=== PATIENT | female | born 1950 | race Caucasian/White ===

== ENCOUNTER 2017-07-06 10:56 | Observation (INO) | payer MEDICAID ==
[2017-07-06] MEDS ORDERED: ONDANSETRON 4 MG TAB.RAPDIS PO ONE (11:59)
[2017-07-06] MEDS ORDERED: NORMAL SALINE 1000 ML 1,000 ML IV ONE ×2 (12:00→18:22)
[2017-07-06] MEDS ORDERED: MECLIZINE HCL 25 MG TABLET PO ONE ×2 (12:00→18:29)
--- NOTE | 2017-07-06 12:08 | ER Document Report ---
ED Medical Screen (RME) - General Chief Complaint: Vertigo Stated Complaint: HEADACHE Time Seen by Provider: 07/06/17 11:56 Notes: 66-year-old female patient with 2 separate problems. Woke up yesterday morning with vertigo symptoms with her head spinning nausea vomiting. If she lays quite still it is okay if she moves it all gets very bad. Exam shows nystagmus made much worse with head movement. Second problem is left-sided abdominal pain she reports off and on for years, severe last 2 days. So she is quite tender in the left lower quadrant of her abdomen. I have greeted and performed a rapid initial assessment of this patient. A comprehensive ED assessment and evaluation of the patient, analysis of test results and completion of the medical decision making process will be conducted by additional ED providers. TRAVEL OUTSIDE OF THE [place] IN LAST 30 DAYS: No - Related Data Allergies/Adverse Reactions: No Known Allergies Allergy (Verified 07/06/17 10:58) Past Medical History - Social History Chew tobacco use (# tins/day): No Frequency of alcohol use: None Drug Abuse: None - Past Medical History Cardiac Medical History: Denies: Hx Congestive Heart Failure, Hx Heart Attack, Hx Hypertension Pulmonary Medical History: Denies: Hx Asthma, Hx Bronchitis, Hx COPD, Hx Pneumonia, Hx Tuberculosis Neurological Medical History: Reports: Hx Seizures Endocrine Medical History: Reports: Hx Diabetes Mellitus Type 2 - "pre diabetic " Renal/ Medical History: Denies: Hx End Stage Renal Disease, Hx Kidney Stones , Hx Peritoneal Dialysis GI Medical History: Denies: Hx Cirrhosis, Hx Gastroesophageal Reflux Disease, Hx Ulcer Musculoskeltal Medical History: Denies Hx Arthritis, Denies Hx Multiple Sclerosis Psychiatric Medical History: Reports: Hx Depression Denies: Hx Bipolar Disorder, Hx Schizophrenia Past Surgical History: Reports: Hx Cholecystectomy, Hx Hysterectomy, Hx Orthopedic Surgery - Lumbar laminectomy. Denies: Hx Pacemaker - Immunizations Hx Diphtheria, Pertussis, Tetanus Vaccination: Yes - 07/05/08 Physical Exam - Vital signs Vitals: Temp Pulse Resp BP Pulse Ox 98.2 F 85 19 146/71 H 95 07/06/17 11:02 07/06/17 11:02 07/06/17 11:02 07/06/17 11:02 07/06/17 11:02 Course - Vital Signs Vital signs: Temp Pulse Resp BP Pulse Ox 98.2 F 85 19 146/71 H 95 07/06/17 11:02 07/06/17 11:02 07/06/17 11:02 07/06/17 11:02 07/06/17 11:02
[2017-07-06 12:44] LABS: ABSOLUTE BASOPHILS # (AUTO) 0.1 10^3/uL (0.0-0.2); ABSOLUTE EOSINOPHILS # (AUTO) 0.1 10^3/uL (0.0-0.6); ABSOLUTE LYMPHOCYTES (AUTO) 1.7 10^3/uL (0.5-4.7); ABSOLUTE MONOCYTES (AUTO) 0.7 10^3/uL (0.1-1.4); ABSOLUTE NEUT (AUTO) 9.6 10^3/uL (1.7-8.2); BASOPHILS % (AUTO) 0.5 % (0-2); EOSINOPHILS % (AUTO) 0.5 % (0-6); HEMATOCRIT 44.6 % (36.0-47.0); HEMOGLOBIN 14.3 g/dL (12.0-15.5); LYMPHOCYTES % (AUTO) 14.2 % (13-45); MEAN CORPUSCULAR HEMOGLOBIN 24.4 pg (27.0-33.4); MEAN CORPUSCULAR HGB CONC 32.1 g/dL (32.0-36.0); MEAN CORPUSCULAR VOLUME 76 fl (80-97); MONOCYTES % (AUTO) 5.6 % (3-13); PLATELET COUNT 314 10^3/uL (150-450); RED BLOOD COUNT 5.89 10^6/uL (3.72-5.28); RED CELL DISTRIBUTION WIDTH 15.3 % (11.5-14.0); SEGMENTED NEUTROPHILS % (AUTO) 79.2 % (42-78); TOTAL CELLS COUNTED % (AUTO) 100 %; WHITE BLOOD COUNT 12.1 10^3/uL (4.0-10.5)
[2017-07-06 13:01] LABS: APPEARANCE,URINE CLOUDY; BILIRUBIN,URINE NEGATIVE (NEGATIVE); COLOR,URINE AMBER; GLUCOSE, URINE 50 mg/dL (NEGATIVE); KETONES,URINE NEGATIVE (NEGATIVE); LEUKOCYTE ESTERASE,URINE SMALL (NEGATIVE); NITRITE,URINE POSITIVE (NEGATIVE); PROTEIN,URINE 30 mg/dL (NEGATIVE); URINE SPECIFIC GRAVITY 1.025
[2017-07-06 13:02] LABS: ALANINE AMINOTRANSFERASE 33 U/L (9-52); ALBUMIN 4.4 g/dL (3.5-5.0); ALKALINE PHOSPHATASE 73 U/L (38-126); ANION GAP 14 (5-19); ASPARTATE AMINO TRANSFERASE 23 U/L (14-36); BILIRUBIN,DIRECT 0.2 mg/dL (0.0-0.4); BILIRUBIN,TOTAL 0.4 mg/dL (0.2-1.3); BLOOD UREA NITROGEN 18 mg/dL (7-20); CARBON DIOXIDE 25 mmol/L (22-30); CHLORIDE 104 mmol/L (98-107); GLUCOSE 213 mg/dL (75-110); POTASSIUM 3.8 mmol/L (3.6-5.0); TOTAL PROTEIN 7.4 g/dL (6.3-8.2)
--- NOTE | 2017-07-06 13:14 | ER Document Report ---
ED General - General Chief Complaint: Vertigo Stated Complaint: HEADACHE Time Seen by Provider: 07/06/17 11:56 Notes: Patient is complaining of dizziness since awakening yesterday morning. During the day yesterday, she experienced 3 episodes where she saw lights flashing in both of her eyes. She also vomited about 5 times yesterday although she has not vomited any today. She says that every time she lifts her head, she feels spinning and gets sweaty and nauseated and lightheaded and dizzy. She is nauseated at this time. Had some diarrhea yesterday. Denies any recent fever. Denies any headache at all. Patient has never had a stroke. Patient also has pain in her left lower abdomen. She says that that pain has been present off and on over the past year or 2, but has significantly worsened in the last couple of days. Patient denies any constipation, but did have some diarrhea last evening. Denies any shortness of breath or difficulty breathing or cough or congestion. Denies any UTI symptoms, blood in urine, etc. TRAVEL OUTSIDE OF THE [place] IN LAST 30 DAYS: No - Related Data Allergies/Adverse Reactions: No Known Allergies Allergy (Verified 07/06/17 10:58) Past Medical History - Social History Smoking Status: Never Smoker Chew tobacco use (# tins/day): No Frequency of alcohol use: None Drug Abuse: None Family History: Reviewed & Not Pertinent Patient has suicidal ideation: No Patient has homicidal ideation: No Neurological Medical History: Reports: Hx Seizures Endocrine Medical History: Reports: Hx Diabetes Mellitus Type 2 - "pre diabetic " Psychiatric Medical History: Reports: Hx Depression Past Surgical History: Reports: Hx Cholecystectomy, Hx Hysterectomy, Hx Orthopedic Surgery - Lumbar laminectomy - Immunizations Hx Diphtheria, Pertussis, Tetanus Vaccination: Yes - 07/05/08 Review of Systems - Review of Systems Notes: REVIEW OF SYSTEMS: CONSTITUTIONAL : Denies fever. EENT: Denies eye, ear, nose or mouth or throat pain or other symptoms. Visual changes reported in HPI. CARDIOVASCULAR: Denies chest pain. RESPIRATORY: Denies cough, chest congestion, or shortness of breath. GASTROINTESTINAL: See HPI. GENITOURINARY: Denies difficulty or painful urinating, urinary frequency, blood in urine. MUSCULOSKELETAL: Denies back or neck pain. Denies joint pain or swelling. SKIN: Denies rash or skin lesions. NEUROLOGICAL: Denies LOC or altered mental status. Denies headache. Denies sensory loss or motor deficits. ALL OTHER SYSTEMS REVIEWED AND NEGATIVE. Physical Exam - Vital signs Vitals: Temp Pulse Resp BP Pulse Ox 98.2 F 85 19 146/71 H 97 07/06/17 10:58 07/06/17 10:58 07/06/17 10:58 07/06/17 10:58 07/06/17 10:58 Interpretation: Normal - Notes Notes: PHYSICAL EXAMINATION: GENERAL: Well-appearing, in no acute distress. HEAD: Atraumatic, normocephalic. EYES: Pupils equal round and reactive to light, extraocular movements intact. Physician examiner in triage reported the patient had nystagmus, but I do not elicit any nystagmus in my examination. ENT: oropharynx clear without exudates. Moist mucous membranes. NECK: Normal range of motion, supple. No carotid bruits heard. LUNGS: Breath sounds clear and equal bilaterally. HEART: Regular rate and rhythm without murmurs. ABDOMEN: Soft, mildly tender in the left lower quadrant but no guarding and no rebound. No masses felt. No bruits heard. BACK: No tenderness throughout entire back. EXTREMITIES: Normal range of motion without pain. NEUROLOGICAL: Normal speech, normal gait. Normal sensory, motor, and reflex exams. Awake, alert, and oriented x3. Cranial nerves normal. PSYCH: Normal mood, normal affect. SKIN: Warm, dry, no rashes. Course - Re-evaluation Re-evalutation: 07/06/17 18:10 I reevaluated patient. Her urine shows that she has a urinary tract infection and she has been given a dose of Rocephin IV. She is also been given IV fluids. She is continuing to have some nausea, and has now had a very large loose stool, although she questions if it is a viral illness or related to the oral contrast that she drank for the CT scan. She continues to be very dizzy and cannot stand and walk because of the dizziness. I still do not see nystagmus as I check her eye movements. Her CT scan of her head is normal. CT scan of the abdomen reveals a 3 cm ovarian cyst and nothing else. Patient is now having recurrent episodes of diarrhea or liquid stools secondary to the CT scan oral contrast. Spoke to the hospitalist on-call who will admit the patient for further evaluation and care for her UTI and nausea, vomiting, and diarrhea and apparent vertigo. - Vital Signs Vital signs: Temp Pulse Resp BP Pulse Ox 98.8 F 70 14 141/61 H 96 07/06/17 17:00 07/06/17 17:00 07/06/17 16:00 07/06/17 17:00 07/06/17 17:00 - Laboratory Result Diagrams: 07/06/17 12:25 07/06/17 12:25 Laboratory results interpreted by me: 07/06/17 07/06/17 07/06/17 12:05 12:25 12:25 WBC 12.1 H RBC 5.89 H MCV 76 L MCH 24.4 L RDW 15.3 H Seg Neutrophils % 79.2 H Absolute Neutrophils 9.6 H Glucose 213 H Urine Protein 30 H Urine Glucose (UA) 50 H Urine Nitrite POSITIVE H Urine Urobilinogen 2.0 H Ur Leukocyte Esterase SMALL H Discharge - Discharge Clinical Impression: UTI (urinary tract infection), Vomiting and diarrhea, Dizziness, Vertigo Condition: Stable Disposition: ADMITTED OBSERVATION Admitting Provider: Hospitalist Unit Admitted: Medical Floor Referrals: STELLA DIAZ MD [Primary Care Provider] - Follow up as needed
[2017-07-06] MEDS ORDERED: CEFTRIAXONE 1 GM/D5W RTU 1 GM/50 ML RTUPB IV ONE (15:37)
--- NOTE | 2017-07-06 16:05 | RADIOLOGY REPORT (SQ) ---
EXAM DESCRIPTION: CT HEAD WITHOUT COMPLETED DATE/TIME: 07/06/2017 3:57 pm REASON FOR STUDY: Extreme dizziness, vomiting, vision changes COMPARISON: None. TECHNIQUE: Axial images acquired through the brain without intravenous contrast. Images reviewed wi th bone, brain and subdural windows. Images stored on PACS. All CT scanners at this facility use dose modulation, iterative reconstruction, and/or weight based d osing when appropriate to reduce radiation dose to as low as reasonably achievable (ALARA). [facility]: Dose Right [facility]: CareDose [facility]: Dose Right [facility]: Teradose 4D [facility]: 2CODE Online RADIATION DOSE: mGy. LIMITATIONS: None. FINDINGS: VENTRICLES: Normal size and contour. CEREBRUM: No masses. No hemorrhage. No midline shift. No evidence for acute infarction. Normal gra y/white matter differentiation. No areas of low density in the white matter. CEREBELLUM: No masses. No hemorrhage. No alteration of density. No evidence for acute infarction. EXTRAAXIAL SPACES: No fluid collections. No masses. ORBITS AND GLOBE: No intra- or extraconal masses. Normal contour of globe without masses. CALVARIUM: No fracture. PARANASAL SINUSES: No fluid or mucosal thickening. SOFT TISSUES: No mass or hematoma. OTHER: No other significant finding. IMPRESSION: NORMAL BRAIN CT WITHOUT CONTRAST. EVIDENCE OF ACUTE STROKE: NO. COMMENT: Quality ID # [id number]: Final reports with documentation of one or more dose reduction techniques (e.g., Automated exposure control, adjustment of the mA and/or kV according to patient size, use of iterative reconstruction technique) TECHNICAL DOCUMENTATION: JOB ID: [id number] [employer]- All Rights Reserved
--- NOTE | 2017-07-06 16:21 | RADIOLOGY REPORT (SQ) ---
EXAM DESCRIPTION: CT ABD/PELVIS WITH IV ORAL COMPLETED DATE/TIME: 07/06/2017 4:05 pm REASON FOR STUDY: LLQ abdominal pain off and on, worse past 2 days COMPARISON: 04/21/2013. TECHNIQUE: CT scan of the abdomen and pelvis performed with intravenous and oral contrast using rodri adriana scanning technique with dynamic intravenous contrast injection. Images reviewed with lung, soft t issue, and bone windows. Reconstructed coronal and sagittal MPR images reviewed. Delayed images for e valuation of the urinary system also acquired. All images stored on PACS. All CT scanners at this facility use dose modulation, iterative reconstruction, and/or weight based d osing when appropriate to reduce radiation dose to as low as reasonably achievable (ALARA). [facility]: Dose Right [facility]: CareDose [facility]: Dose Right [facility]: Teradose 4D [facility]: [employer] CONTRAST TYPE AND DOSE: contrast/concentration: Isovue 370.00 mg/ml; Total Contrast Delivered: 100.0 ml; Total Saline Delivered: 50.0 ml RENAL FUNCTION: BUN 18 creatinine 0.8. RADIATION DOSE: CT Rad equipment meets quality standard of care and radiation dose reduction techniq ues were employed. CTDIvol: 9.6 - 14.4 mGy. DLP: 1322 mGy-cm.. LIMITATIONS: None. FINDINGS: LOWER CHEST: No significant findings. No nodules or infiltrates. LIVER: Normal size. Diffuse fatty infiltration. A few small subcentimeter cysts unchanged. No trudy d or enhancing masses. No dilated ducts. SPLEEN: Normal size. No focal lesions. PANCREAS: No masses. No significant calcifications. No adjacent inflammation or peripancreatic fluid collections. Pancreatic duct not dilated. GALLBLADDER: Surgically absent. ADRENAL GLANDS: Stable 2.4 cm left adrenal mass. RIGHT KIDNEY AND URETER: No solid masses. No significant calcification. No hydronephrosis or hydroure ter. LEFT KIDNEY AND URETER: No solid masses. No significant calcification. No hydronephrosis or hydrouret er. AORTA AND VESSELS: No aneurysm. No dissection. Renal arteries, SMA, celiac without stenosis. RETROPERITONEUM: No retroperitoneal adenopathy, hemorrhage or masses. BOWEL AND PERITONEAL CAVITY: No obstruction. No visualized masses. No free fluid. No inflammatory ch anges or thickening of bowel wall. APPENDIX: Normal. PELVIS: 3.3 cm left ovarian cyst. No significant masses. Normal bladder. No free fluid. ABDOMINAL WALL: No masses. No hernias. BONES: No significant or acute findings. OTHER: No other significant finding. IMPRESSION: 1. 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 2. FATTY INFILTRATION OF THE LIVER WITH A FEW SMALL SUBCENTIMETER CYSTS, UNCHANGED. 3. LEFT OVARIAN CYST. 4. NO OTHER SIGNIFICANT OR ACUTE FINDINGS IN THE ABDOMEN OR PELVIS. TECHNICAL DOCUMENTATION: JOB ID: [id number] Quality ID # [id number]: Final reports with documentation of one or more dose reduction techniques (e.g., Au tomated exposure control, adjustment of the mA and/or kV according to patient size, use of iterative reconstruction technique) 2010 [employer]- All Rights Reserved
[2017-07-06] MEDS ORDERED: ONDANSETRON HCL INJ/PF 4 MG/2 ML SDV IV ONE (18:29)
[2017-07-06] MEDS ORDERED: GLUCAGON,HUMAN RECOMB 1 MG INJ IM PRN (19:36)
[2017-07-06] MEDS ORDERED: DEXTROSE 40% GEL 15 GM TUBE PO PRN ×2 (19:36)
[2017-07-06] MEDS ORDERED: MECLIZINE HCL 12.5 MG TABLET PO PRN (19:36)
[2017-07-06] MEDS ORDERED: ACETAMINOPHEN 325 MG TABLET PO PRN (19:36)
[2017-07-06] MEDS ORDERED: DEXTROSE 50%-WATER 25 GM/50 ML DISP.SYRIN IV PRN ×2 (19:36)
[2017-07-06] MEDS ORDERED: IPRATROPIUM/ALBUTEROL 0.5-2.5 MG/3 ML AMPUL NEB PRN (19:36)
[2017-07-06 19:59] LABS: URINE AMPHETAMINES SCREEN NEGATIVE; URINE BARBITURATES SCREEN NEGATIVE; URINE BENZODIAZEPINES SCREEN NEGATIVE; URINE COCAINE SCREEN NEGATIVE; URINE MARIJUANA (THC) SCREEN NEGATIVE; URINE METHADONE SCREEN NEGATIVE; URINE PHENCYCLIDINE SCREEN NEGATIVE
[2017-07-06] MEDS: HEPARIN SOD (PORCINE) 5,000 UNIT/ML 1 ML SYRINGE SUBCUT SCH (22:10)
--- NOTE | 2017-07-07 04:48 | PDOC H&P ---
History of Present Illness Admission Date/PCP: 07/06/17 19:37 EDGARD DIAZ MD Patient complains of: Vertigo, headache, nausea and left lower quadrant pain History of Present Illness: CRIS BLANC is a 66 year old female with a past medical history of diabetes, obesity and chronic pain without medical care or medicine. She presents with 12 hours of headache vertigo nausea and vomiting gastric content. Symptoms are worsened by movement of her head and have been somewhat alleviated by meclizine in the emergency room. She denies confusion, dysarthria or focal weakness. Additionally she complains of left lower quadrant pain. Her workup reveals uncontrolled hyperglycemia, leukocytosis, CT abdomen and pelvis with stable left adrenal mass, new 3.3 cm left ovarian cyst. And urinalysis suggestive of UTI. She started on meclizine and Rocephin and referred to the hospitalist for admission. Patient denies medications or vaginal bleeding. Past Medical History Cardiac Medical History: Denies: Congestive Heart Failure, Myocardial Infarction, Hypertension Pulmonary Medical History: Denies: Asthma, Bronchitis, Chronic Obstructive Pulmonary Disease (COPD), Pneumonia, Tuberculosis Neurological Medical History: Reports: Seizures Endocrine Medical History: Reports: Diabetes Mellitus Type 2 - "pre diabetic" Renal/ Medical History: Denies: End Stage Renal Disease GI Medical History: Denies: Cirrhosis, Gastroesophageal Reflux Disease Musculoskeltal Medical History: Denies: Arthritis Psychiatric Medical History: Reports: Depression Denies: Bipolar Disorder Hematology: Denies: Anemia, Bleeding Tendencies Past Surgical History Past Surgical History: Reports: Cholecystectomy, Hysterectomy, Orthopedic Surgery - Lumbar laminectomy Denies: Pacemaker Social History Information Source: Patient Lives with: Alone Smoking Status: Never Smoker Frequency of Alcohol Use: Occasional Hx Recreational Drug Use: No Drugs: None Hx Prescription Drug Abuse: No - Advance Directive Resuscitation Status: Full Code Family History Family History: DM Parental Family History Reviewed: Yes Children Family History Reviewed: Yes Sibling(s) Family History Reviewed.: Yes Medication/Allergy Home Medications: No Home Medications 07/06/17 Allergies/Adverse Reactions: No Known Allergies Allergy (Verified 07/06/17 10:58) Review of Systems Constitutional: PRESENT: as per HPI, fatigue, headache(s). ABSENT: chills, fever(s), weight gain, weight loss Eyes: PRESENT: as per HPI, other - Left-sided nystagmus provoked by left lateral gaze. ABSENT: visual disturbances Ears: ABSENT: hearing changes Cardiovascular: ABSENT: chest pain, dyspnea on exertion, edema, orthropnea, palpitations Respiratory: ABSENT: cough, hemoptysis Gastrointestinal: PRESENT: abdominal pain, constipation, nausea, vomiting. ABSENT: diarrhea, hematemesis, hematochezia Genitourinary: ABSENT: dysuria, hematuria Musculoskeletal: ABSENT: joint swelling Integumentary: ABSENT: rash, wounds Neurological: PRESENT: vertigo. ABSENT: abnormal gait, abnormal speech, confusion, dizziness, focal weakness, frequent falls, syncope, weakness Psychiatric: ABSENT: anxiety, depression, homidical ideation, suicidal ideation Endocrine: ABSENT: cold intolerance, heat intolerance, polydipsia, polyuria Hematologic/Lymphatic: ABSENT: easy bleeding, easy bruising Physical Exam Vital Signs: Temp Pulse Resp BP Pulse Ox 97.8 F 76 18 142/61 H 96 07/07/17 00:25 07/07/17 00:25 07/07/17 00:25 07/07/17 00:25 07/07/17 00:25 General appearance: PRESENT: no acute distress, well-developed, well-nourished Head exam: PRESENT: atraumatic, normocephalic Eye exam: PRESENT: conjunctiva pink, EOMI, PERRLA, other - Left sided nystagmus with provocation by left lateral gaze. ABSENT: scleral icterus Ear exam: PRESENT: normal external ear exam Mouth exam: PRESENT: moist, tongue midline Neck exam: ABSENT: carotid bruit, JVD, lymphadenopathy, thyromegaly Respiratory exam: PRESENT: clear to auscultation james. ABSENT: rales, rhonchi, wheezes Cardiovascular exam: PRESENT: RRR. ABSENT: diastolic murmur, rubs, systolic murmur Pulses: PRESENT: normal dorsalis pedis pul Vascular exam: PRESENT: normal capillary refill GI/Abdominal exam: PRESENT: normal bowel sounds, soft. ABSENT: distended, guarding, mass, organolmegaly, rebound, tenderness Rectal exam: PRESENT: deferred Extremities exam: PRESENT: full ROM. ABSENT: calf tenderness, clubbing, pedal edema Neurological exam: PRESENT: alert, awake, oriented to person, oriented to place , oriented to time, oriented to situation, CN II-XII grossly intact. ABSENT: motor sensory deficit Psychiatric exam: PRESENT: appropriate affect, normal mood. ABSENT: homicidal ideation, suicidal ideation Skin exam: PRESENT: dry, intact, warm. ABSENT: cyanosis, rash Results Impressions: Abdomen/Pelvis CT 07/06/17 00:00 IMPRESSION: 1. 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 2. FATTY INFILTRATION OF THE LIVER WITH A FEW SMALL SUBCENTIMETER CYSTS, UNCHANGED. 3. LEFT OVARIAN CYST. 4. NO OTHER SIGNIFICANT OR ACUTE FINDINGS IN THE ABDOMEN OR PELVIS. Head CT 07/06/17 13:03 IMPRESSION: NORMAL BRAIN CT WITHOUT CONTRAST. EVIDENCE OF ACUTE STROKE: NO. Assessment & Plan - Diagnosis (1) Vertigo Is this a current diagnosis for this admission?: Yes Plan: Acute left sided vertigo complicated by headache and vomiting. Symptomatic management, follow-up MRI. (2) UTI (urinary tract infection) Is this a current diagnosis for this admission?: Yes Plan: Complicated by diabetes, IV Rocephin follow-up CBC and urine culture (3) Diabetes Is this a current diagnosis for this admission?: Yes Plan: New diagnosis hyperglycemia greater than 200 follow-up A1c, sliding scale insulin ordered. (4) Obesity Is this a current diagnosis for this admission?: Yes Plan: Morbid obesity will evaluate for metabolic cause with evaluation of thyroid function and dietitian consultation (5) Ovarian cyst Is this a current diagnosis for this admission?: Yes Plan: Symptomatic management, consider TRIPOLER consult given family history of ovarian cancer. - Time Time Spent: 50 to 70 Minutes
[2017-07-07 05:15] LABS: ABSOLUTE BASOPHILS # (AUTO) 0.1 10^3/uL (0.0-0.2); ABSOLUTE EOSINOPHILS # (AUTO) 0.2 10^3/uL (0.0-0.6); ABSOLUTE LYMPHOCYTES (AUTO) 2.5 10^3/uL (0.5-4.7); ABSOLUTE MONOCYTES (AUTO) 0.7 10^3/uL (0.1-1.4); ABSOLUTE NEUT (AUTO) 4.5 10^3/uL (1.7-8.2); EOSINOPHILS % (AUTO) 2.2 % (0-6); HEMATOCRIT 37.9 % (36.0-47.0); HEMOGLOBIN 12.5 g/dL (12.0-15.5); LYMPHOCYTES % (AUTO) 31.1 % (13-45); MEAN CORPUSCULAR HEMOGLOBIN 24.9 pg (27.0-33.4); MEAN CORPUSCULAR HGB CONC 33.1 g/dL (32.0-36.0); MEAN CORPUSCULAR VOLUME 75 fl (80-97); MONOCYTES % (AUTO) 9.1 % (3-13); PLATELET COUNT 244 10^3/uL (150-450); RED BLOOD COUNT 5.04 10^6/uL (3.72-5.28); RED CELL DISTRIBUTION WIDTH 15.3 % (11.5-14.0); SEGMENTED NEUTROPHILS % (AUTO) 56.6 % (42-78); TOTAL CELLS COUNTED % (AUTO) 100 %
[2017-07-07 05:35] LABS: ANION GAP 9 (5-19); BLOOD UREA NITROGEN 18 mg/dL (7-20); CALCIUM 8.7 mg/dL (8.4-10.2); CARBON DIOXIDE 26 mmol/L (22-30); CHLORIDE 109 mmol/L (98-107); CHOLESTEROL 140.92 mg/dL (0-200); GLUCOSE 124 mg/dL (75-110); POTASSIUM 4.4 mmol/L (3.6-5.0); SODIUM 144.2 mmol/L (137-145); TRIGLYCERIDES 119 mg/dL (<150)
[2017-07-07 05:46] LABS: DIRECT LDL 84 mg/dL (<100)
[2017-07-07] MEDS: HEPARIN SOD (PORCINE) 5,000 UNIT/ML 1 ML SYRINGE SUBCUT SCH ×2 (09:16→13:40)
[2017-07-07] MEDS: DOCUSATE SODIUM 100 MG CAPSULE PO SCH (09:16)
[2017-07-07] MEDS ORDERED: NORMAL SALINE 1000 ML 1,000 ML IV PRN ×2 (09:44→17:24)
[2017-07-07] MEDS ORDERED: MECLIZINE HCL 25 MG TABLET PO PRN (09:46)
[2017-07-07] MEDS ORDERED: DIAZEPAM 2 MG TABLET PO PRN (09:46)
[2017-07-07] MEDS ORDERED: MECLIZINE HCL 12.5 MG TABLET PO PRN (09:46)
--- NOTE | 2017-07-07 11:51 | RADIOLOGY REPORT (SQ) ---
EXAM DESCRIPTION: MRI HEAD WITHOUT COMPLETED DATE/TIME: 07/07/2017 11:08 am REASON FOR STUDY: vertigo, headache, vomiting COMPARISON: CT brain 07/06/2017 TECHNIQUE: Multiplanar imaging includes non-contrasted T1, T2, FLAIR, and diffusion with ADC map seq uences. Images stored on PACS. LIMITATIONS: None. FINDINGS: ANATOMY: No developmental anomalies. Normal vascular flow voids. Pituitary fossa normal. CSF SPACES: Normal in size and contour. No hemorrhage. CEREBRUM: Sulci and gyri normal in size and contour. Normal white matter signal on FLAIR imaging. No evidence of hemorrhage, mass, or extraaxial fluid collection. POSTERIOR FOSSA: No signal alteration. No hemorrhage. No edema, masses or mass effect. Internal ad tory canals, cerebello-pontine angles, mastoids normal. DIFFUSION IMAGING: Negative for acute or sub-acute infarction. ORBITS: No masses. Globes normal. PARANASAL SINUSES: No fluid levels. Mucosa normal. OTHER: No other significant finding. IMPRESSION: NORMAL MRI OF THE BRAIN WITHOUT INTRAVENOUS GADOLINIUM CONTRAST. EVIDENCE OF ACUTE STROKE: NO. TECHNICAL DOCUMENTATION: JOB ID: [id number] [employer]- All Rights Reserved
--- NOTE | 2017-07-07 12:32 | PDOC PROGRESS REPORT ---
Subjective Progress Note for:: 07/07/17 Subjective:: The patient is seen on morning rounds. She is seen resting in bed comfortably having just finished her breakfast. She reports continued dizziness described as the room spinning and a vertical motion with a sensation of falling. She endorses slight nausea, however, denies vomiting and states that she feels that her nausea has improved since eating. She does report loose stools this morning. She continues to have left mid/lower abdominal pain radiating to the left flank. She is very concerned by the CT results demonstrating left ovarian cyst as she has multiple family members with a history of abdominal cancers. She states that her sister had ovarian cancer and that her mother had colon cancer with metastasis. She has no other questions or concerns at this time. Reason For Visit: LEFT LQ PAIN OVARIAN CYST, UTI, VERTIGO, DIABETES Physical Exam Vital Signs: Temp Pulse Resp BP Pulse Ox 98.1 F 61 16 125/65 97 07/07/17 07:52 07/07/17 07:52 07/07/17 07:52 07/07/17 07:52 07/07/17 07:52 Intake & Output 07/06/17 07/07/17 07/08/17 06:59 06:59 06:59 Weight 113.5 kg General appearance: PRESENT: no acute distress, morbidly obese, well-developed, well-nourished Head exam: PRESENT: atraumatic, normocephalic Eye exam: PRESENT: conjunctiva pink, EOMI, nystagmus - Left lateral, PERRLA. ABSENT: scleral icterus Ear exam: PRESENT: normal external ear exam Mouth exam: PRESENT: moist, tongue midline Neck exam: ABSENT: carotid bruit, JVD, lymphadenopathy, thyromegaly Respiratory exam: PRESENT: clear to auscultation james, decreased breath sounds - Bibasilar, symmetrical, unlabored. ABSENT: rales, rhonchi, wheezes Cardiovascular exam: PRESENT: RRR, +S1, +S2. ABSENT: diastolic murmur, rubs, systolic murmur Pulses: PRESENT: normal dorsalis pedis pul Vascular exam: PRESENT: normal capillary refill GI/Abdominal exam: PRESENT: normal bowel sounds, soft. ABSENT: distended, guarding, mass, organolmegaly, rebound, tenderness Rectal exam: PRESENT: deferred Extremities exam: PRESENT: full ROM, +1 edema. ABSENT: calf tenderness, clubbing, pedal edema Neurological exam: PRESENT: alert, awake, oriented to person, oriented to place , oriented to time, oriented to situation, CN II-XII grossly intact. ABSENT: motor sensory deficit Psychiatric exam: PRESENT: anxious, appropriate affect, normal mood. ABSENT: homicidal ideation, suicidal ideation Skin exam: PRESENT: dry, intact, warm. ABSENT: cyanosis, rash Results Laboratory Results: 07/07/17 04:56 07/07/17 04:56 07/07/17 07/07/17 04:56 04:56 WBC 8.0 RBC 5.04 Hgb 12.5 Hct 37.9 MCV 75 L MCH 24.9 L MCHC 33.1 RDW 15.3 H Plt Count 244 Seg Neutrophils % 56.6 Lymphocytes % 31.1 Monocytes % 9.1 Eosinophils % 2.2 Basophils % 1.0 Absolute Neutrophils 4.5 Absolute Lymphocytes 2.5 Absolute Monocytes 0.7 Absolute Eosinophils 0.2 Absolute Basophils 0.1 Sodium 144.2 Potassium 4.4 Chloride 109 H Carbon Dioxide 26 Anion Gap 9 BUN 18 Creatinine 0.87 Est GFR ( Amer) > 60 Est GFR (Non-Af Amer) > 60 Glucose 124 H Calcium 8.7 Triglycerides 119 Cholesterol 140.92 LDL Cholesterol Direct 84 VLDL Cholesterol 24.0 HDL Cholesterol 35 L Impressions: Abdomen/Pelvis CT 07/06/17 00:00 IMPRESSION: 1. 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 2. FATTY INFILTRATION OF THE LIVER WITH A FEW SMALL SUBCENTIMETER CYSTS, UNCHANGED. 3. LEFT OVARIAN CYST. 4. NO OTHER SIGNIFICANT OR ACUTE FINDINGS IN THE ABDOMEN OR PELVIS. Head CT 07/06/17 13:03 IMPRESSION: NORMAL BRAIN CT WITHOUT CONTRAST. EVIDENCE OF ACUTE STROKE: NO. Head MRI 07/07/17 00:00 IMPRESSION: NORMAL MRI OF THE BRAIN WITHOUT INTRAVENOUS GADOLINIUM CONTRAST. EVIDENCE OF ACUTE STROKE: NO. Assessment & Plan - Diagnosis (1) UTI (urinary tract infection) Is this a current diagnosis for this admission?: Yes Plan: The patient presented with a complaint of vertigo and during routine workup was discovered to have a UA of the UTI. Urine culture: Gram-negative roro The patient has been admitted to the floor. She has been empirically started on Rocephin, will adjust antibiotics as cultures result. She is provided maintenance IV fluids for hydration and encouraged to continue drinking p.o. fluids. (2) Vertigo Is this a current diagnosis for this admission?: Yes Plan: Acute left-sided vertigo complicated by headache and vomiting. She remains nauseated, however, has had no further episodes of emesis. Head CT and MRI were both normal and without evidence of CVA. She is provided meclizine every 8 hours and anti-emetics. (3) Ovarian cyst Is this a current diagnosis for this admission?: Yes Plan: A 3 cm left ovarian cyst was noted by CT of the abdomen. Gynecology was consulted, appreciate their evaluation and recommendations. (4) Diabetes Is this a current diagnosis for this admission?: Yes Plan: The diagnosis of hyperglycemia greater than 200. Follow-up A1c found to be 6.5% . Will ask the registered dietitian to meet with the patient. We will continue Accu-Cheks before meals and at bedtime with Humalog for sliding scale coverage. (5) Obesity Is this a current diagnosis for this admission?: Yes Plan: TSH 2.30 Will ask registered dietitian to meet with the patient. - Time Time Spent with patient: 25-34 minutes Medications reviewed and adjusted accordingly: Yes
[2017-07-07 14:15] LABS: CARCINOEMBRYONIC ANTIGEN 0.6 ng/mL (<3.0)
--- NOTE | 2017-07-07 15:00 | PDOC CONSULTATION ---
Consultation Consult Date: 07/07/17 Attending physician:: YUMIKO STRATTON Consult reason:: LLQ pain, ovarian cyst (incidental finding on CT) History of Present Illness Admission Date/PCP: 07/06/17 19:37 EDGARD DIAZ MD Patient complains of: multiple complaints including Left sided pain History of Present Illness: CRIS BLANC is a 66 year old female with a past medical history of diabetes, obesity and chronic pain without medical care or medicine. She presents with 12 hours of headache vertigo nausea and vomiting gastric content. Symptoms are worsened by movement of her head and have been somewhat alleviated by meclizine in the emergency room. She denies confusion, dysarthria or focal weakness. Additionally she complains of left lower quadrant pain. Her workup reveals uncontrolled hyperglycemia, leukocytosis, CT abdomen and pelvis with stable left adrenal mass, new 3.3 cm left ovarian cyst. And urinalysis suggestive of UTI. She started on meclizine and Rocephin and referred to the hospitalist for admission. Patient denies medications or vaginal bleeding. 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 was consulted for incidental finding of left ovarian cyst noted on CT of abdomen/pelvis Past Medical History LMP: menopausal Gynecological Infection: No Cardiac Medical History: Denies: Congestive Heart Failure, Myocardial Infarction, Hypertension Pulmonary Medical History: Denies: Asthma, Bronchitis, Chronic Obstructive Pulmonary Disease (COPD), Pneumonia, Tuberculosis Neurological Medical History: Reports: Seizures Endocrine Medical History: Reports: Diabetes Mellitus Type 2 - "pre diabetic" Renal/ Medical History: Denies: End Stage Renal Disease GI Medical History: Denies: Cirrhosis, Gastroesophageal Reflux Disease Musculoskeltal Medical History: Denies: Arthritis Psychiatric Medical History: Reports: Depression Denies: Bipolar Disorder Social History Information Source: Patient Lives with: Alone Smoking Status: Never Smoker Frequency of Alcohol Use: None Hx Recreational Drug Use: No Drugs: None Hx Prescription Drug Abuse: No - Advance Directive Resuscitation Status: Full Code Family History Family History: DM Parental Family History Reviewed: No Children Family History Reviewed: NA Sibling(s) Family History Reviewed.: NA Medication/Allergy Home Medications: No Home Medications 07/06/17 Allergies/Adverse Reactions: No Known Allergies Allergy (Verified 07/06/17 10:58) Review of Systems Constitutional: ABSENT: chills, fever(s), headache(s), weight gain, weight loss Gastrointestinal: ABSENT: abdominal pain, constipation, diarrhea, hematemesis, hematochezia, nausea, vomiting Neurological: ABSENT: abnormal gait, abnormal speech, confusion, dizziness, focal weakness, syncope Psychiatric: ABSENT: anxiety, depression, homidical ideation, suicidal ideation Endocrine: ABSENT: cold intolerance, heat intolerance, polydipsia, polyuria Hematologic/Lymphatic: ABSENT: easy bleeding, easy bruising Physical Exam - Physical Exam Vital Signs: Temp Pulse Resp BP Pulse Ox 98.1 F 61 16 125/65 97 07/07/17 07:52 07/07/17 07:52 07/07/17 07:52 07/07/17 07:52 07/07/17 07:52 Intake & Output 07/06/17 07/07/17 07/08/17 06:59 06:59 06:59 Weight 113.5 kg General appearance: PRESENT: no acute distress, well-developed, well-nourished Head exam: PRESENT: atraumatic, normocephalic Respiratory exam: PRESENT: clear to auscultation james, symmetrical, unlabored Cardiovascular exam: PRESENT: RRR. ABSENT: diastolic murmur, rubs, systolic murmur Pulses: PRESENT: normal dorsalis pedis pul, +2 pedal pulses bilateral Vascular exam: PRESENT: normal capillary refill GI/Abdominal exam: PRESENT: normal bowel sounds, soft, tenderness - nttp. ABSENT: distended, guarding, mass, organolmegaly, rebound Rectal exam: PRESENT: deferred Extremities exam: PRESENT: full ROM. ABSENT: calf tenderness, clubbing, pedal edema Neurological exam: PRESENT: alert, awake, oriented to person, oriented to place , oriented to time, oriented to situation, CN II-XII grossly intact. ABSENT: motor sensory deficit Psychiatric exam: PRESENT: appropriate affect, normal mood. ABSENT: homicidal ideation, suicidal ideation Skin exam: PRESENT: dry, intact, warm. ABSENT: cyanosis, rash Result Laboratory Results: 07/07/17 04:56 07/07/17 04:56 07/07/17 07/07/17 04:56 04:56 WBC 8.0 RBC 5.04 Hgb 12.5 Hct 37.9 MCV 75 L MCH 24.9 L MCHC 33.1 RDW 15.3 H Plt Count 244 Seg Neutrophils % 56.6 Lymphocytes % 31.1 Monocytes % 9.1 Eosinophils % 2.2 Basophils % 1.0 Absolute Neutrophils 4.5 Absolute Lymphocytes 2.5 Absolute Monocytes 0.7 Absolute Eosinophils 0.2 Absolute Basophils 0.1 Sodium 144.2 Potassium 4.4 Chloride 109 H Carbon Dioxide 26 Anion Gap 9 BUN 18 Creatinine 0.87 Est GFR ( Amer) > 60 Est GFR (Non-Af Amer) > 60 Glucose 124 H Calcium 8.7 Triglycerides 119 Cholesterol 140.92 LDL Cholesterol Direct 84 VLDL Cholesterol 24.0 HDL Cholesterol 35 L Impressions: Abdomen/Pelvis CT 07/06/17 00:00 IMPRESSION: 1. 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 2. FATTY INFILTRATION OF THE LIVER WITH A FEW SMALL SUBCENTIMETER CYSTS, UNCHANGED. 3. LEFT OVARIAN CYST. 4. NO OTHER SIGNIFICANT OR ACUTE FINDINGS IN THE ABDOMEN OR PELVIS. Head CT 07/06/17 13:03 IMPRESSION: NORMAL BRAIN CT WITHOUT CONTRAST. EVIDENCE OF ACUTE STROKE: NO. Status: Imported from PACS Assessment & Plan - Diagnosis (1) Ovarian cyst Qualifiers: Laterality: left Qualified Code(s): N83.202 - Unspecified ovarian cyst, left side Is this a current diagnosis for this admission?: Yes Plan: PIECE HAND consulted for Left ovarian cyst indidentally found on Abd/Pelvis CT. Pt without pain on exam but reports pain all over left side of abd more at and above umblicus especially under ribs per pt. Pt also having diarrhea and other multiple issues becaing cared for by Medicine. Reviewed plan for eval of left ovarian cyst - Will get tumor markers and will get US to further characterize left ovarian cyst. Reviewed unlikely that ovarian cyst is causing her pain ( pain is atypical for cyst pain)- 3cm cyst and appears non complex on CT scan - will further charac with US. Reviewed with pt that if simple on US and normal labs that may be able to monitor for resolution with f/u US. REviewed with pt that suspect other cause of her pain. SHe has family history of muliple family members with cancer. Stable left adrenal mass noted - poss that could be causing some of her Left abdominal pain under her ribs. Primary team notified of plan and findings. Would recommend f/u with [facility] in office. She reports that she is trying to get Medicaid. office number [phone] for appt. - Time Time Spent: 30 to 50 Minutes Critical Time spent with patient: Less than 15 minutes Medications reviewed and adjusted accordingly: Yes Anticipated discharge: Home Within: within 72 hours Disposition: Disposition per primary care team. - Inpatient Certification Based on my medical assessment, after consideration of the patient's comorbidities, presenting symptoms, or acuity I expect that the services needed warrant INPATIENT care.: Yes I certify that my determination is in accordance with my understanding of Medicare's requirements for reasonable and necessary INPATIENT services [42 CFR 412.3e].: Yes Medical Necessity: Significant Comorbidiites Make Outpatient Treatment Too Risky , Need Close Monitoring Due to Risk of Patient Decompensation, Risk of Diagnosis Which Will Require Inpatient Eval/Care/Monitoring Post Hospital Care: D/C Web Applications Architect Documentation - Plan Summary Plan Summary: Disposition per primary team.
[2017-07-07] MEDS ORDERED: ONDANSETRON HCL INJ/PF 4 MG/2 ML SDV IV PRN (17:18)
--- NOTE | 2017-07-07 17:25 | PDOC PROGRESS REPORT ---
Subjective Progress Note for:: 07/07/17 Subjective:: patient is still complaining of vertigo Nauseais improved no headache MRI brain was negative Reason For Visit: LEFT LQ PAIN OVARIAN CYST, UTI, VERTIGO, DIABETES Physical Exam Vital Signs: Temp Pulse Resp BP Pulse Ox 98.2 F 77 16 134/50 H 98 07/07/17 16:14 07/07/17 16:14 07/07/17 16:14 07/07/17 16:14 07/07/17 16:14 Intake & Output 07/06/17 07/07/17 07/08/17 00:59 00:59 00:59 Weight 113.5 kg General appearance: PRESENT: no acute distress, well-developed, well-nourished Head exam: PRESENT: atraumatic, normocephalic Eye exam: PRESENT: conjunctiva pink, EOMI, PERRLA. ABSENT: scleral icterus Ear exam: PRESENT: normal external ear exam Mouth exam: PRESENT: moist, tongue midline Neck exam: ABSENT: carotid bruit, JVD, lymphadenopathy, thyromegaly Respiratory exam: PRESENT: clear to auscultation james. ABSENT: rales, rhonchi, wheezes Cardiovascular exam: PRESENT: RRR. ABSENT: diastolic murmur, rubs, systolic murmur Pulses: PRESENT: normal dorsalis pedis pul Vascular exam: PRESENT: normal capillary refill GI/Abdominal exam: PRESENT: normal bowel sounds, soft. ABSENT: distended, guarding, mass, organolmegaly, rebound, tenderness Rectal exam: PRESENT: deferred Extremities exam: PRESENT: full ROM. ABSENT: calf tenderness, clubbing, pedal edema Neurological exam: PRESENT: alert, awake, oriented to person, oriented to place , oriented to time, oriented to situation, CN II-XII grossly intact. ABSENT: motor sensory deficit Psychiatric exam: PRESENT: appropriate affect, normal mood. ABSENT: homicidal ideation, suicidal ideation Skin exam: PRESENT: dry, intact, warm. ABSENT: cyanosis, rash Results Laboratory Results: 07/07/17 04:56 07/07/17 04:56 07/07/17 07/07/17 04:56 04:56 WBC 8.0 RBC 5.04 Hgb 12.5 Hct 37.9 MCV 75 L MCH 24.9 L MCHC 33.1 RDW 15.3 H Plt Count 244 Seg Neutrophils % 56.6 Lymphocytes % 31.1 Monocytes % 9.1 Eosinophils % 2.2 Basophils % 1.0 Absolute Neutrophils 4.5 Absolute Lymphocytes 2.5 Absolute Monocytes 0.7 Absolute Eosinophils 0.2 Absolute Basophils 0.1 Sodium 144.2 Potassium 4.4 Chloride 109 H Carbon Dioxide 26 Anion Gap 9 BUN 18 Creatinine 0.87 Est GFR ( Amer) > 60 Est GFR (Non-Af Amer) > 60 Glucose 124 H Calcium 8.7 Triglycerides 119 Cholesterol 140.92 LDL Cholesterol Direct 84 VLDL Cholesterol 24.0 HDL Cholesterol 35 L Impressions: Abdomen/Pelvis CT 07/06/17 00:00 IMPRESSION: 1. 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 2. FATTY INFILTRATION OF THE LIVER WITH A FEW SMALL SUBCENTIMETER CYSTS, UNCHANGED. 3. LEFT OVARIAN CYST. 4. NO OTHER SIGNIFICANT OR ACUTE FINDINGS IN THE ABDOMEN OR PELVIS. Head CT 07/06/17 13:03 IMPRESSION: NORMAL BRAIN CT WITHOUT CONTRAST. EVIDENCE OF ACUTE STROKE: NO. Head MRI 07/07/17 00:00 IMPRESSION: NORMAL MRI OF THE BRAIN WITHOUT INTRAVENOUS GADOLINIUM CONTRAST. EVIDENCE OF ACUTE STROKE: NO. Assessment & Plan - Diagnosis (1) Ovarian cyst Qualifiers: Laterality: left Qualified Code(s): N83.202 - Unspecified ovarian cyst, left side Is this a current diagnosis for this admission?: Yes (2) UTI (urinary tract infection) Qualifiers: Indwelling urinary catheter type: unspecified Encounter type: initial encounter Is this a current diagnosis for this admission?: Yes (3) Vertigo Is this a current diagnosis for this admission?: Yes - Time Time Spent with patient: 25-34 minutes - Plan Summary Plan Summary: Patient likely has labyrintitis or benign positional vertigo continue meclizine -scheduled reevaluate in am PT eval continue cefriaxone decrease IV fluids
[2017-07-07] MEDS ORDERED: CEFTRIAXONE SODIUM 1,500 MG in DEXTROSE 5%-WATER 100 ML IV SCH (18:00)
--- NOTE | 2017-07-07 23:10 | RADIOLOGY REPORT (SQ) ---
EXAM DESCRIPTION: U/S NON-OB PELVIS W/O DOP CLINICAL HISTORY: 66 years, Female, Ovarian cyst on CT, please characterize. Partial hysterectomy 30 years prior. COMPARISON: None. TECHNIQUE: Transabdominal. LIMITATIONS: None. FINDINGS: There is a 3.0 x 2.5 x 1.8 cm hypoechoic homogeneous cystic lesion without vascularity. The 3.4 x 3.3 x 3.2 cm left ovary appears otherwise of normal size, shape, echotexture, and vascularity. Right ovary is not visualized. Uterus is surgically removed. IMPRESSION: 3.0 cm hemorrhagic cyst pattern lesion of the left ovary in this late post-menopause patient; ENVIRONMENTAL PROFESSIONAL consultation recommended (based on RP Best Practice guidelines). 2011 [employer] [employer]- All Rights Reserved
[2017-07-07] MEDS: MECLIZINE HCL 25 MG TABLET PO SCH (23:18)
[2017-07-08] MEDS: HEPARIN SOD (PORCINE) 5,000 UNIT/ML 1 ML SYRINGE SUBCUT SCH ×3 (05:24→21:08)
[2017-07-08] MEDS: MECLIZINE HCL 25 MG TABLET PO SCH ×3 (05:24→21:08)
[2017-07-08 07:02] LABS: HEMATOCRIT 40.8 % (36.0-47.0); HEMOGLOBIN 13.4 g/dL (12.0-15.5); MEAN CORPUSCULAR HEMOGLOBIN 24.8 pg (27.0-33.4); MEAN CORPUSCULAR HGB CONC 32.7 g/dL (32.0-36.0); MEAN CORPUSCULAR VOLUME 76 fl (80-97); PLATELET COUNT 221 10^3/uL (150-450); RED BLOOD COUNT 5.38 10^6/uL (3.72-5.28); RED CELL DISTRIBUTION WIDTH 15.3 % (11.5-14.0); WHITE BLOOD COUNT 8.6 10^3/uL (4.0-10.5)
[2017-07-08 07:26] LABS: ANION GAP 11 (5-19); BLOOD UREA NITROGEN 19 mg/dL (7-20); CALCIUM 9.1 mg/dL (8.4-10.2); CARBON DIOXIDE 24 mmol/L (22-30); CHLORIDE 106 mmol/L (98-107); GLUCOSE 138 mg/dL (75-110); POTASSIUM 4.6 mmol/L (3.6-5.0); SODIUM 140.6 mmol/L (137-145)
[2017-07-08] MEDS: DOCUSATE SODIUM 100 MG CAPSULE PO SCH (08:51)
[2017-07-08] MEDS ORDERED: PREDNISONE 20 MG TABLET PO ONE (09:00)
[2017-07-08 09:06] LABS: CA 27.29 12.8 U/mL (0.0-38.6)
[2017-07-08] MEDS ORDERED: DIAZEPAM 2 MG TABLET PO ONE (11:00)
--- NOTE | 2017-07-08 14:56 | PDOC DISCHARGE SUMMARY ---
General - Admit/Disc Date/PCP Admission Date/Primary Care Provider: 07/06/17 19:37 EDGARD DIAZ MD Discharge Date: 07/08/17 - Discharge Diagnosis (1) UTI (urinary tract infection) Is this a current diagnosis for this admission?: Yes (2) Vertigo Is this a current diagnosis for this admission?: Yes (3) Ovarian cyst Is this a current diagnosis for this admission?: Yes (4) Diabetes Is this a current diagnosis for this admission?: Yes (5) Obesity Is this a current diagnosis for this admission?: Yes - Additional Information Resuscitation Status: Full Code Discharge Diet: As Tolerated, Regular Discharge Activity: Activity As Tolerated, Balance Activity w/Rest, Other - change positions and move slowly to avoid falls Prescriptions: Ciprofloxacin HCl [Cipro 500 mg Tablet] 500 mg PO BID #20 tablet Meclizine HCl [Antivert 25 mg Tablet] 25 mg PO Q6HP PRN #60 tablet PRN Reason: Vertigo Home Medications: Acetaminophen [Tylenol 325 mg Tablet] 650 mg PO Q4HP PRN tablet 07/08/17 Ciprofloxacin HCl [Cipro 500 mg Tablet] 500 mg PO BID #20 tablet 07/08/17 Meclizine HCl [Antivert 25 mg Tablet] 25 mg PO Q6HP PRN #60 tablet 07/08/17 History of Present Illness History of Present Illness: Per H&P by Dr. Ortega: CRIS BLANC is a 66 year old female with a past medical history of diabetes, obesity and chronic pain without medical care medicine. She presents with 12 hours of headache vertigo nausea and vomiting gastric content. Symptoms are worsened by movement of her head and have been somewhat alleviated by meclizine in the emergency department. She denies confusion, dysarthria or focal weakness. Additionally she complains of left lower quadrant pain. Her workup reveals uncontrolled hyperglycemia, leukocytosis, CT abdomen and pelvis with stable left adrenal mass, new 3.3 cm left ovarian cyst. And urinalysis suggestive of UTI. She started on meclizine and Rocephin and referred to the hospitalist for admission. Patient denies medications or vaginal bleeding. Hospital Course Hospital Course: The patient was admitted with a complaint of vertigo, nausea with vomiting, and left lower abdominal pain. Initial workup revealed a urinary tract infection and she was empirically started on Rocephin. Urine culture revealed and sensitive E. coli. Her vertigo was evaluated with a head CT and follow-up MRI imaging; both of which were normal and without evidence of CVA. She was provided scheduled meclizine and antiemetics. Her nausea and vomiting have subsequently improved and she is now tolerating a regular diet without emesis. She does continue to have vertigo that is worsened by movement; however, her nystagmus has resolved. The abdominal pain was evaluated with an abdominal and pelvic CT which revealed a stable adrenal mass and a new left ovarian cyst. Gynecology was consulted for evaluation as the patient does have a positive family history for ovarian cancer. Tumor markers were obtained and thus far are normal, however, some are still pending at this time as they are send out labs. A follow-up pelvic ultrasound was obtained and classified the cyst as a 3.[address] Pittman, of [facility] QUALITY ASSURANCE PROJECT MANAGER-Oncology, was contacted for a telephone consultation. He recommended continued routine care and screenings through the patient's primary care provider or deputy fire marshal and did not determined that the ovarian cyst required urgent follow-up at this time. At the time of discharge, the patient is stable and tolerating a regular diet. She is provided a handout and is demonstrated on how to perform Zhen maneuvers at home. She is provided prescriptions for meclizine and Cipro. I recommend that she follow-up with her primary care provider within 1-2 weeks; the patient is currently being evaluated by the [facility]. She may also follow-up with Dr. Roberts at [facility] for continued care. Physical Exam Vital Signs: Temp Pulse Resp BP Pulse Ox 98.3 F 86 15 128/53 H 95 07/08/17 11:47 07/08/17 13:30 07/08/17 13:30 07/08/17 11:47 07/08/17 13:30 Intake & Output 07/07/17 07/08/17 07/09/17 06:59 06:59 06:59 Intake Total 800 Output Total 2100 Balance -1300 Weight 113.5 kg Results Laboratory Results: 07/08/17 06:43 07/08/17 06:43 07/08/17 07/08/17 06:43 06:43 WBC 8.6 RBC 5.38 H Hgb 13.4 Hct 40.8 MCV 76 L MCH 24.8 L MCHC 32.7 RDW 15.3 H Plt Count 221 Sodium 140.6 Potassium 4.6 Chloride 106 Carbon Dioxide 24 Anion Gap 11 BUN 19 Creatinine 0.76 Est GFR ( Amer) > 60 Est GFR (Non-Af Amer) > 60 Glucose 138 H Calcium 9.1 Impressions: Abdomen/Pelvis CT 07/06/17 00:00 IMPRESSION: 1. 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 2. FATTY INFILTRATION OF THE LIVER WITH A FEW SMALL SUBCENTIMETER CYSTS, UNCHANGED. 3. LEFT OVARIAN CYST. 4. NO OTHER SIGNIFICANT OR ACUTE FINDINGS IN THE ABDOMEN OR PELVIS. Head CT 07/06/17 13:03 IMPRESSION: NORMAL BRAIN CT WITHOUT CONTRAST. EVIDENCE OF ACUTE STROKE: NO. Head MRI 07/07/17 00:00 IMPRESSION: NORMAL MRI OF THE BRAIN WITHOUT INTRAVENOUS GADOLINIUM CONTRAST. EVIDENCE OF ACUTE STROKE: NO. Pelvis Ultrasound 07/07/17 12:29 IMPRESSION: 3.0 cm hemorrhagic cyst pattern lesion of the left ovary in this late post-menopause patient; BIZTALK CONSULTANT consultation recommended (based on Best Practice guidelines). 2010 [employer]- All Rights Reserved Qualifiers PATEINT BEING DISCHARGED WITH ANY OF THE FOLLOWING DIAGNOSIS?: No
--- NOTE | 2017-07-08 17:37 | RADIOLOGY REPORT (SQ) ---
EXAM DESCRIPTION: ANKLE LEFT AP/LATERAL; FOOT LEFT 2 VIEWS COMPLETED DATE/TIME: 07/08/2017 4:57 pm REASON FOR STUDY: left ankle pain; left foot pain COMPARISON: Left foot dated 07/17/2014 NUMBER OF VIEWS: Four views. TECHNIQUE: AP and lateral radiographic images acquired of the left ankle with AP and lateral views o f the left foot. LIMITATIONS: None. FINDINGS: MINERALIZATION: Normal. BONES: Moderate hallux valgus with bony hypertrophy along the medial head of 1st metatarsal. Small c alcaneal spur at the insertion of the plantar aponeurosis. Slight irregularity of the inferior aspec t the lateral malleolus raising the possibility of nondisplaced fracture however there is no associat ed soft tissue swelling. No other fractures are seen. No worrisome bone lesions. JOINTS: No effusions. Mild degenerative changes involving the midfoot. SOFT TISSUES: No soft tissue swelling. No foreign body. OTHER: No other significant finding. IMPRESSION: 1. Questionable nondisplaced fracture involving the tip of the lateral malleolus. 2. Hallux valgus. 3. Mild degenerative changes in the midfoot. TECHNICAL DOCUMENTATION: JOB ID: [id number] [employer]- All Rights Reserved
[2017-07-08] MEDS: INSULIN LISPRO 100 UNIT/ML 3 ML VIAL SUBCUT PRN (23:20)
[2017-07-09] MEDS: MECLIZINE HCL 25 MG TABLET PO SCH ×2 (05:44→13:47)
[2017-07-09] MEDS: HEPARIN SOD (PORCINE) 5,000 UNIT/ML 1 ML SYRINGE SUBCUT SCH ×2 (05:45→13:48)
[2017-07-09] MEDS: DOCUSATE SODIUM 100 MG CAPSULE PO SCH (10:22)
--- NOTE | 2017-07-09 12:30 | Progress Note ---
Provider Note Provider Note: S: The patient was seen on morning rounds. She states that her vertigo has improved she is nearly symptom-free at rest. She does continue to have dizziness when she changes positions, however, she states that this resolves within a minute or 2. She denies nausea or vomiting and was able to tolerate breakfast this morning. She does report slight discomfort to her left ankle and inability to bear weight secondary to pain. O: Overnight events reviewed. Vital signs - Temp 97.8, heart rate 68, blood pressure 130/64, respiratory rate 18, SPO2 100% on room air. HEENT-normocephalic atraumatic, normal external ears bilaterally, pupils are equal round and reactive to light and accommodating, no nystagmus is noted at this time, EOMI. Lungs-respirations are even and unlabored, clear to auscultation throughout CVA-regular rate and rhythm, no murmurs rubs or gallops noted Extremities-lower left extremity examined; left lateral ankle and dorsal aspect of the foot with slight edema. Slight ecchymosis noted distal to the lateral malleolus. Tender to palpation. Limited range of motion secondary to pain. A: 1-UTI 2-vertigo 3-ovarian cyst 4-diabetes 5-obesity 6-nondisplaced fracture of the left lateral malleolus P: The patient experienced a left ankle fracture after her discharge orders were written yesterday. She was observed overnight and orthopedics consulted. They recommend an Nam wrap and crutches; to follow-up as an outpatient in the clinic in 1 week. Due to the patient's vertigo and inclement weather, she is provided a standard walker. She is discharged home with prescriptions for ciprofloxacin, meclizine, Valium, and tramadol. Actual date of discharge is July 09, 2017 at 12:29 PM. Time spent on discharge: < 30 minutes
[2017-07-09] MEDS: INSULIN LISPRO 100 UNIT/ML 3 ML VIAL SUBCUT PRN (12:33)
[2017-07-09 14:34] VITALS: BP 156/62
== END 2017-07-09 18:08 | disposition home or self-care (01) ==
LOC: ER 10:56 → EH 19:37 → 2N 07-07 05:33
PROVIDERS: ADMIT Internal Medicine; ATTEND Internal Medicine
DX: N39.0 Urinary tract infection, site not specified (principal); B96.20 Unspecified Escherichia coli [E. coli] as the cause of diseases classified elsewhere; R42 Dizziness and giddiness; N83.202 Unspecified ovarian cyst, left side; E11.65 Type 2 diabetes mellitus with hyperglycemia; E27.9 Disorder of adrenal gland, unspecified; G89.29 Other chronic pain; H55.00 Unspecified nystagmus; R11.2 Nausea with vomiting, unspecified; R19.7 Diarrhea, unspecified; K59.00 Constipation, unspecified; E66.01 Morbid (severe) obesity due to excess calories; S82.65XA Nondisplaced fracture of lateral malleolus of left fibula, initial encounter for closed fracture; X58.XXXA Exposure to other specified factors, initial encounter; Y92.239 Unspecified place in hospital as the place of occurrence of the external cause; Z83.3 Family history of diabetes mellitus; Z80.41 Family history of malignant neoplasm of ovary; Z90.49 Acquired absence of other specified parts of digestive tract; Z90.710 Acquired absence of both cervix and uterus; Z80.0 Family history of malignant neoplasm of digestive organs; Z68.41 Body mass index [BMI] 40.0-44.9, adult
CPT/HCPCS: 99285; 96372; 96361; 96375; 96365; 36415 ×3; 87086; 82962 ×3; 86304; 82378; 83615; 83735; 84443; 85025 ×2; 85027; 87088; 86300; 80048 ×2; 80053; 81001; 87186; 80307; 83036; 80061; 70551; 73600; 73620; 76856; 70450; 74177; 94799; 97116; 97163; G0378 ×4; J3490 ×4; J1644 ×4; S0119; J1815 ×2; J7512; J0696 ×2; J2405; J7030 ×3

== ENCOUNTER → 2017-09-08 | Outpatient (CLI) | payer MEDICAID ==
--- NOTE | 2017-09-08 12:45 | WOMENS IMAGING REPORT ---
EXAM DESCRIPTION: BILAT SCREENING MAMMO W/CAD COMPLETED DATE/TIME: 09/08/2017 7:47 am REASON FOR STUDY: SCREENING MAMMO Z12.31 ENCNTR SCREEN MAMMOGRAM FOR MALIGNANT NEOPLASM OF MELCHOR COMPARISON: 08/15/2014 and 03/23/2013. TECHNIQUE: Standard craniocaudal and mediolateral oblique views of each breast recorded using [employer] l acquisition. LIMITATIONS: None. FINDINGS: Findings present which are benign by mammographic criteria. No suspicious masses, calcifi cations or architectural distortion. Pertinent benign findings: Stable small mass in the inferior left breast. Read with the assistance of CAD. .[facility] - R2 Cenova Version 1.3 .[facility] - R2 Cenova Version 1.3 .[facility] - R2 Cenova Version 2.4 .[facility] [place] - R2 Cenova Version 2.4 .[facility] - R2 Screening Representative Version 9.2 Benign mammographic findings may include one or more of the following: Smooth masses, popcorn/rim/co arse calcifications, asymmetries, post-procedure changes, and lesions with long-standing stability. IMPRESSION: BENIGN MAMMOGRAPHIC FINDINGS. BIRADS 2 BREAST DENSITY: a. The breasts are almost entirely fatty. BIRAD: 2 BENIGN FINDING(S) RECOMMENDATION: ROUTINE SCREENING COMMENT: The patient has been notified of the results by letter per SA requirements. Additional no tification policies are in place for contacting patient with suspicious or incomplete findings. Quality ID #225: The [employer] recommends an annual screening mammogram for women aged 40 years or over. This facility utilizes a reminder system to ensure that all patients receive reminder letters, and/or direct phone calls for appointments. This includes reminders for routine scr eening mammograms, diagnostic mammograms, or other Breast Imaging Interventions when appropriate. Th is patient will be placed in the appropriate reminder system. The [employer] (ACR) has developed recommendations for screening MRI of the breast s in certain patient populations, to be used in conjunction with mammography. Breast MRI surveillanc e may be appropriate for women with more than 20% lifetime risk of developing breast cancer as deter mined by genetic testing, significant family history of the disease, or history of mantle radiation f or Hodgkins Disease. ACR Practice Guidelines 2008. TECHNICAL DOCUMENTATION: FINDING NUMBER: (1) ASSESSMENT: (1) JOB ID: [id number] [employer]- All Rights Reserved Reading location - IP/workstation name: [email or web address]
== END ==
LOC: WI 07:19
PROVIDERS: ATTEND Physician Assistant
DX: Z12.31 Encounter for screening mammogram for malignant neoplasm of breast (principal)
CPT/HCPCS: 77067

== ENCOUNTER → 2018-08-22 | Outpatient (CLI) | payer MEDICARE, MEDICAID ==
--- NOTE | 2018-08-22 16:24 | RADIOLOGY REPORT (SQ) ---
EXAM DESCRIPTION: CHEST 2 VIEWS COMPLETED DATE/TIME: 08/22/2018 4:06 pm REASON FOR STUDY: COUGH COMPARISON: 09/15/2015 EXAM PARAMETERS: NUMBER OF VIEWS: two views TECHNIQUE: Digital Frontal and Lateral radiographic views of the chest acquired. RADIATION DOSE: NA LIMITATIONS: none FINDINGS: LUNGS AND PLEURA: No opacities, masses or pneumothorax. No pleural effusion. MEDIASTINUM AND HILAR STRUCTURES: No masses or contour abnormalities. HEART AND VASCULAR STRUCTURES: Heart normal size. No evidence for failure. BONES: No acute findings. HARDWARE: None in the chest. OTHER: No other significant finding. IMPRESSION: NO ACUTE RADIOGRAPHIC FINDING IN THE CHEST. TECHNICAL DOCUMENTATION: JOB ID: [id number] [employer]- All Rights Reserved Reading location - IP/workstation name: [email or web address]
== END ==
LOC: RAD 15:52
PROVIDERS: ATTEND Physician Assistant
DX: R05 Cough (principal)
CPT/HCPCS: 71046

== ENCOUNTER → 2018-11-09 | Outpatient (CLI) | payer MEDICARE, MEDICAID ==
--- NOTE | 2018-11-09 10:43 | WOMENS IMAGING REPORT ---
EXAM DESCRIPTION: 3D SCREENING MAMMO BILAT COMPLETED DATE/TIME: 11/09/2018 8:17 am REASON FOR STUDY: ROUTINE BILATERAL SCREENING;Z12.31 Z12.31 ENCNTR SCREEN MAMMOGRAM FOR MALIGNANT N EOPLASM OF MELCHOR COMPARISON: Multiple since 2011 TECHNIQUE: Standard craniocaudal and mediolateral oblique views of each breast recorded using digita l acquisition and breast tomosynthesis. LIMITATIONS: None. FINDINGS: Findings present which are benign by mammographic criteria. No suspicious masses, calcific ations or architectural distortion. Pertinent benign findings: Benign right breast calcifications. Benign stable subcentimeter nodule le ft breast 6 o'clock position Read with the assistance of CAD. .[facility] - R2 Stock Holder Version 9.2 Benign mammographic findings may include one or more of the following: Smooth masses, popcorn/rim/coa rse calcifications, asymmetries, post-procedure changes, and lesions with long-standing stability. IMPRESSION: BENIGN MAMMOGRAPHIC FINDINGS. BIRADS 2 BREAST DENSITY: a. The breasts are almost entirely fatty. BIRAD: 2 BENIGN FINDING(S) RECOMMENDATION: ROUTINE SCREENING COMMENT: The patient has been notified of the results by letter per MQSA requirements. Additional no tification policies are in place for contacting patient with suspicious or incomplete findings. Quality ID #225: The [employer] recommends an annual screening mammogram for women aged 40 years or over. This facility utilizes a reminder system to ensure that all patients receive reminder letters, and/or direct phone calls for appointments. This includes reminders for routine scr eening mammograms, diagnostic mammograms, or other Breast Imaging Interventions when appropriate. Th is patient will be placed in the appropriate reminder system. TECHNICAL DOCUMENTATION: FINDING NUMBER: (1) ASSESSMENT: (1) JOB ID: [id number] [employer]- All Rights Reserved Reading location - IP/workstation name: [email or web address]
== END ==
LOC: WI 07:55
PROVIDERS: ATTEND Physician Assistant
DX: Z12.31 Encounter for screening mammogram for malignant neoplasm of breast (principal)
CPT/HCPCS: 77063; 77067

== ENCOUNTER 2019-02-25 08:25 | Emergency (ER) | payer MEDICARE, MEDICAID ==
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
--- NOTE | 2019-02-25 09:14 | RADIOLOGY REPORT (SQ) ---
EXAM DESCRIPTION: FOOT RIGHT COMPLETE COMPLETED DATE/TIME: 02/25/2019 8:53 am REASON FOR STUDY: foot injury COMPARISON: None. NUMBER OF VIEWS: Three views. TECHNIQUE: AP, lateral and oblique radiographic images acquired of the right foot. LIMITATIONS: None. FINDINGS: MINERALIZATION: Normal. BONES: No acute fracture or dislocation. No worrisome bone lesions. JOINTS: No effusions. SOFT TISSUES: No soft tissue swelling. No foreign body. OTHER: No other significant finding. IMPRESSION: NEGATIVE STUDY OF THE RIGHT FOOT. NO RADIOGRAPHIC EVIDENCE OF ACUTE INJURY. TECHNICAL DOCUMENTATION: JOB ID: [id number] [employer]- All Rights Reserved Reading location - IP/workstation name: [email or web address]
--- NOTE | 2019-02-25 09:18 | RADIOLOGY REPORT (SQ) ---
EXAM DESCRIPTION: KNEE RIGHT 4 VIEWS COMPLETED DATE/TIME: 02/25/2019 8:53 am REASON FOR STUDY: knee injury COMPARISON: None. NUMBER OF VIEWS: Four views. TECHNIQUE: AP, lateral, and both oblique radiographic images acquired of the right knee. LIMITATIONS: None. FINDINGS: MINERALIZATION: Normal. BONES: No acute fracture or dislocation. No worrisome bone lesions. JOINT: No effusion. SOFT TISSUES: No soft tissue swelling. No radio-opaque foreign body. 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 IMPRESSION: NO RADIOGRAPHIC EVIDENCE OF ACUTE INJURY. TECHNICAL DOCUMENTATION: JOB ID: [id number] [employer]- All Rights Reserved Reading location - IP/workstation name: [email or web address]
[2019-02-25] MEDS ORDERED: IBUPROFEN 800 MG TABLET PO ONE (09:37)
[2019-02-25 09:56] VITALS: BP 136/82
== END 2019-02-25 09:56 | disposition home or self-care (01) ==
LOC: ER 08:25
DX: S90.31XA Contusion of right foot, initial encounter (principal); S83.8X1A Sprain of other specified parts of right knee, initial encounter; I10 Essential (primary) hypertension; V49.88XA Car occupant (driver) (passenger) injured in other specified transport accidents, initial encounter; R73.03 Prediabetes; Z90.49 Acquired absence of other specified parts of digestive tract; Z90.710 Acquired absence of both cervix and uterus
CPT/HCPCS: 99283; 73630; 73564; A9270

== ENCOUNTER → 2019-03-08 | Outpatient (CLI) | payer MEDICARE, MEDICAID ==
--- NOTE | 2019-03-08 08:42 | RADIOLOGY REPORT (SQ) ---
EXAM DESCRIPTION: MRI RT LOWER JOINT WITHOUT COMPLETED DATE/TIME: 03/08/2019 7:55 am REASON FOR STUDY: RIGHT KNEE PAIN (M25.561) M25.561 PAIN IN RIGHT KNEE COMPARISON: 02/25/2019 radiographs. TECHNIQUE: Rightknee images acquired and stored on PACS. Multiplanar images include fat sensitive s equences as T1, water sensitive sequences as FST2 or STIR, cartilage sensitive sequences as FSPD, and gradient echo sequences. LIMITATIONS: Moderate motion on the axial images. FINDINGS: JOINT AND BURSAE: Small effusion. BONE CORTEX AND MARROW: No alteration of signal to suggest marrow replacement. No worrisome bone lesi ons. No occult fracture. ACL: Intact. Mild focal tibial edema adjacent to insertion. PCL: Intact. Minimal cystic changes are suggested in the tibia adjacent to insertion. MCL: Mild regional edema. Intact otherwise. LCL: Intact. No periligamentous edema or fluid. MEDIAL MENISCUS: Tear posterior meniscus root. Extruded appearance. LATERAL MENISCUS: Blunting along the free margin, mild tear but otherwise normal. MEDIAL COMPARTMENT: Irregular chondral thinning in the weight-bearing surfaces. Osteophytes. Minima l subchondral edema. LATERAL COMPARTMENT: Cartilage preserved. No bone bruises or reactive marrow edema. No osteophytes. PATELLA: Limited assessment of patellar cartilage on the axial views. Diffuse loss is suggested on o ther sequences. No reactive bone cysts or erosions. Small osteophytes. Normal location. EXTENSOR MECHANISM: Intact. Quadriceps and patella tendons normal. SOFT TISSUES: Partially ruptured popliteal cyst. Appropriate vascular flow voids. OTHER: No other significant finding. IMPRESSION: 1. Medial meniscus posterior root tear. 2. 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 TECHNICAL DOCUMENTATION: JOB ID: [id number] [employer]- All Rights Reserved Reading location - IP/workstation name: [email or web address]
== END ==
LOC: RAD 06:47
PROVIDERS: ATTEND Physician Assistant
DX: M25.561 Pain in right knee (principal)

== ENCOUNTER → 2019-03-21 | Outpatient (CLI) | payer MEDICARE, MEDICAID ==
--- NOTE | 2019-03-21 08:48 | RADIOLOGY REPORT (SQ) ---
EXAM DESCRIPTION: MRI RT LOWER JOINT WITHOUT COMPLETED DATE/TIME: 03/21/2019 7:43 am REASON FOR STUDY: PAIN IN RT ANKLE M25.571 PAIN IN RIGHT ANKLE AND JOINTS OF RIGHT FOOT COMPARISON: Foot radiographs 02/25/2019. TECHNIQUE: Right ankle images acquired and stored on PACS. Multiplanar images include fat sensitive sequences as T1, fluid sensitive sequences as FST2/STIR, cartilage sensitive sequences as FSPD, and g radient echo sequences. LIMITATIONS: None. FINDINGS: BONE MARROW: No alteration of signal to suggest marrow replacement or edema. No occult fra cture. No large osteophytes. EFFUSIONS: No subtalar or tibiotalar effusions. No loose bodies. OSSEOUS ARTICULATIONS: Mild tarsometatarsal degenerative narrowing. No bulky osteophytes. Mild subc hondral cysts. TALAR DOME AND TIBIAL PLAFOND: Normal cartilage. No osteochondral defect. ACHILLES TENDON: Intact without partial or full-thickness tear. No adjacent bursal fluid or edema. TIBIALIS ANTERIOR TENDON: Intact without edema at the 1st MT attachment. TIBIALIS POSTERIOR TENDON: Partial insertion on an accessory navicular ossicle which looks prominent but without any gross edema. FLEXOR HALLUCIS LONGUS AND FLEXOR DIGITORUM TENDONS: Normal morphology and no tendon sheath fluid. No edema of the os trigonum. PERONEUS LONGUS AND BREVIS TENDON: Normal morphology and no tendon sheath fluid. No subluxation. ATFL, CFL, PTFL: Intact. No thickening or signal alteration. No mitzi-ligamentous fluid. DELTOID LIGAMENT: Visualized components intact. TARSAL TUNNEL: No masses. No muscle atrophy. SINUS TARSI: Normal fat signal looks largely replaced, suspicious for sinus tarsi syndrome. PLANTAR FASCIA: Minimal thickening along the proximal plantar fascia. No large bone spur. ADJACENT SOFT TISSUES: Mild extensor digitorum tenosynovitis. OTHER: No other significant finding. IMPRESSION: 1. Potential sinus tarsi syndrome. 2. Tarsometatarsal arthropathy, presumably degenerative. 3. Extensor tenosynovitis. TECHNICAL DOCUMENTATION: JOB ID: [id number] [employer]- All Rights Reserved Reading location - IP/workstation name: [email or web address]
== END ==
LOC: RAD 07:01
PROVIDERS: ATTEND Physician Assistant
DX: M65.871 Other synovitis and tenosynovitis, right ankle and foot (principal); M25.571 Pain in right ankle and joints of right foot

== ENCOUNTER → 2019-09-25 | Outpatient (CLI) | payer MEDICARE, MEDICAID ==
--- NOTE | 2019-09-25 10:20 | RADIOLOGY REPORT (SQ) ---
EXAM DESCRIPTION: CHEST PA/LATERAL COMPLETED DATE/TIME: 09/25/2019 9:31 am REASON FOR STUDY: COUGH COMPARISON: None. EXAM PARAMETERS: NUMBER OF VIEWS: two views TECHNIQUE: Digital Frontal and Lateral radiographic views of the chest acquired. RADIATION DOSE: NA LIMITATIONS: none FINDINGS: LUNGS AND PLEURA: No opacities, masses or pneumothorax. No pleural effusion. MEDIASTINUM AND HILAR STRUCTURES: No masses or contour abnormalities. HEART AND VASCULAR STRUCTURES: Heart normal size. No evidence for failure. BONES: No acute findings. HARDWARE: None in the chest. OTHER: No other significant finding. IMPRESSION: NO SIGNIFICANT RADIOGRAPHIC FINDING IN THE CHEST. TECHNICAL DOCUMENTATION: JOB ID: [id number] 2010 [employer]- All Rights Reserved Reading location - IP/workstation name: [email or web address]
== END ==
LOC: RAD 09:16
PROVIDERS: ATTEND Physician Assistant
DX: R05 Cough (principal)
CPT/HCPCS: 71046

== ENCOUNTER → 2019-09-25 | Outpatient (CLI) | payer MEDICARE, MEDICAID ==
[2019-09-25 14:26] LABS: A TYPE INFLUENZA AG NEGATIVE (NEGATIVE); B INFLUENZA AG NEGATIVE (NEGATIVE)
== END ==
LOC: RDC 13:16
PROVIDERS: ATTEND Registered Nurse
DX: Z20.828 Contact with and (suspected) exposure to other viral communicable diseases (principal)
CPT/HCPCS: 36415; 87070; 87635; 87804; 87880

== ENCOUNTER 2019-12-21 08:37 | Emergency (ER) | payer MEDICARE, MEDICAID ==
--- NOTE | 2019-12-21 09:53 | RADIOLOGY REPORT (SQ) ---
EXAM DESCRIPTION: SHOULDER LEFT 2 OR MORE VIEWS IMAGES COMPLETED DATE/TIME: 12/21/2019 9:37 am REASON FOR STUDY: fall, decreased ROM COMPARISON: None. NUMBER OF VIEWS: Three views. TECHNIQUE: Internal rotation, external rotation, and Y view images acquired of the left shoulder. LIMITATIONS: None. FINDINGS: MINERALIZATION: Normal. BONES: No acute fracture. No worrisome bone lesions. JOINTS: No dislocation. VISUALIZED LUNGS AND RIBS: No pneumothorax. No rib fracture. SOFT TISSUES: No radiopaque foreign body. OTHER: No other significant finding. IMPRESSION: NEGATIVE STUDY OF THE LEFT SHOULDER. NO RADIOGRAPHIC EVIDENCE OF ACUTE INJURY. TECHNICAL DOCUMENTATION: JOB ID: [id number] 2010 [employer]- All Rights Reserved Reading location - IP/workstation name: [email or web address]
[2019-12-21] MEDS ORDERED: KETOROLAC TROMETHAMINE 60 MG/2 ML SDV IM ONE (10:14)
--- NOTE | 2019-12-21 10:20 | ER Document Report ---
ED General - General Chief Complaint: Arm Injury Stated Complaint: FALL/LEFT SHOULDER,ARM PAIN Time Seen by Provider: 12/21/19 09:57 Primary Care Provider: JOSUE DIAZ MD [Primary Care Provider] - Follow up as needed TRAVEL OUTSIDE OF THE [place] IN LAST 30 DAYS: No - HPI Notes: Chief complaint: Left shoulder injury HPI: 68-year-old female experienced a slip and fall in her shower at home 1 week ago and since that time has not been able to lift her left shoulder. She is right-hand dominant. There was no head or neck injury associated with this and no syncopal episode. Patient has been taking tramadol at home with minimal improvement in pain. - Related Data Allergies/Adverse Reactions: No Known Allergies Allergy (Verified 02/25/19 08:26) Home Medications: januvia, metformin, meloxicam, atorvastatin Past Medical History - General Information source: Patient, [facility] Records - Social History Smoking Status: Never Smoker Chew tobacco use (# tins/day): No Frequency of alcohol use: None Drug Abuse: None Family History: Reviewed & Not Pertinent, DM Patient has homicidal ideation: No - Past Medical History Cardiac Medical History: Denies: Hx Congestive Heart Failure, Hx Heart Attack, Hx Hypertension Pulmonary Medical History: Denies: Hx Asthma, Hx Bronchitis, Hx COPD, Hx Pneumonia, Hx Tuberculosis Neurological Medical History: Reports: Hx Seizures. Denies: Hx Parkinson's Disease Endocrine Medical History: Reports: Hx Diabetes Mellitus Type 2 - "pre diabetic" Renal/ Medical History: Denies: Hx End Stage Renal Disease, Hx Kidney Stones, Hx Peritoneal Dialysis GI Medical History: Denies: Hx Cirrhosis, Hx Gastroesophageal Reflux Disease, Hx Ulcer Musculoskeletal Medical History: Denies Hx Arthritis, Denies Hx Multiple Sclerosis Psychiatric Medical History: Reports: Hx Depression Denies: Hx Bipolar Disorder, Hx Schizophrenia Past Surgical History: Reports: Hx Cholecystectomy, Hx Hysterectomy, Hx Orthopedic Surgery - Lumbar laminectomy. Denies: Hx Pacemaker - Immunizations Hx Diphtheria, Pertussis, Tetanus Vaccination: Yes - 07/05/08 Review of Systems - Review of Systems Notes: Constitutional: Negative for fever. HENT: Negative for sore throat. Eyes: Negative for visual changes. Cardiovascular: Negative for chest pain. Respiratory: Negative for shortness of breath. Gastrointestinal: Negative for abdominal pain, vomiting or diarrhea. Genitourinary: Negative for dysuria. Musculoskeletal: As per HPI. Skin: Negative for rash. Neurological: Negative for headaches, weakness or numbness. 10 point ROS negative except as marked above and in HPI. Physical Exam - Vital signs Vitals: Temp Pulse Resp BP Pulse Ox 98.4 F 83 16 174/78 H 95 12/21/19 08:42 12/21/19 08:42 12/21/19 08:42 12/21/19 08:42 12/21/19 08:42 - Notes Notes: GENERAL: Somewhat obese male approximately stated age appearing in no acute distress. SKIN: Good turgor no rashes. HEAD: Normocephalic atraumatic. EYES: PERRLA. EOMI. Conjunctivae and sclerae clear. NECK: Supple. No masses or thyromegaly. No adenopathy. Carotids 2+ without bruits. No JVD. BACK: Symmetrical without tenderness. CHEST: Respirations unlabored. Breath sounds clear and symmetrical. HEART: Regular rhythm. No murmur gallop or rub. ABDOMEN: Soft nontender without masses, organomegaly or rebound. Bowel sounds normally active. No bruits. EXTREMITIES: Patient holds her left upper extremity in flexion at her side and resists active or passive movement secondary to pain. Distal neurovascular status is intact. She is very tender over the posterior lateral aspect of the shoulder. No edema. No calf tenderness. Cap refill less than 1.5 seconds. Dorsalis pedis and posterior tibial pulses 3+ and symmetrical. NEUROLOGICAL: Alert and oriented x3. Nonfocal. PSYCHIATRIC: Appropriate affect. Course - Re-evaluation Re-evalutation: 12/21/19 10:18 Clinical findings are consistent with a rotator cuff injury. I have given the patient an injection of Toradol here and placed in a sling. I will provide oral analgesics at home and refer her to orthopedics. Findings, clinical impression and plan of treatment have been discussed with patient/family. Understanding of current findings and recommendations has been acknowledged by them and there is agreement regarding disposition and follow-up. - Vital Signs Vital signs: Temp Pulse Resp BP Pulse Ox 98.4 F 83 16 174/78 H 95 12/21/19 09:08 12/21/19 08:42 12/21/19 08:42 12/21/19 08:42 12/21/19 08:42 - Diagnostic Test Radiology reviewed: Reports reviewed - Plain films of the left shoulder reviewed by radiologist and reported as negative for fracture or dislocation. Discharge - Discharge Clinical Impression: Rotator cuff injury left shoulder Condition: Stable Disposition: HOME, SELF-CARE Additional Instructions: Rotator Cuff Injury You have injured your rotator cuff. This is a group of tendons that form a "cuff" around the upper arm bone. This usually results from an injury that tears the tendons, but sometimes the rotator cuff simply "wears out." If the rotator cuff is only partially torn, time and protection may allow it to heal. This may take several weeks. If the shoulder doesn't become free of pain, surgery may be considered. A complete tear of the rotator cuff requires surgery. If the shoulder is too painful to move, we may need to recheck in a few days. An arthrogram (injecting dye into the joint) or MR scan may be necessary to resolve the question. Initial treatment includes cold packs and a sling to rest the shoulder. We usually prescribe antiinflammatory medication. Be sure to keep your follow up a ppointment. Call us any time if there's severe pain, numbness, or loss of function. Use sling as instructed. Apply ice packs intermittently. Take pain medication provided as needed only. Follow-up with referral orthopedist within the next 3 to 5 days. Prescriptions: Oxycodone HCl/Acetaminophen [Percocet 5-325 mg Tablet] 1 - 2 tab PO Q4H PRN #15 tablet PRN Reason: Referrals: JOSUE DIAZ MD [Primary Care Provider] - Follow up as needed EMILIANO SILVERMAN JR, [ACTIVE PROVISIONAL STAFF] - Follow up as needed
[2019-12-21 10:50] VITALS: BP 142/54
== END 2019-12-21 10:48 | disposition home or self-care (01) ==
LOC: ER 08:37
DX: S46.002A Unspecified injury of muscle(s) and tendon(s) of the rotator cuff of left shoulder, initial encounter (principal); W18.2XXA Fall in (into) shower or empty bathtub, initial encounter; Y92.002 Bathroom of unspecified non-institutional (private) residence as the place of occurrence of the external cause; R73.03 Prediabetes; Z79.84 Long term (current) use of oral hypoglycemic drugs; Z79.899 Other long term (current) drug therapy; Z79.1 Long term (current) use of non-steroidal anti-inflammatories (NSAID)
CPT/HCPCS: 99283; 96372; 73030; J1885

== ENCOUNTER → 2020-04-19 | Outpatient (CLI) | payer MEDICARE, MEDICAID ==
--- NOTE | 2020-04-19 12:42 | WOMENS IMAGING REPORT ---
EXAM DESCRIPTION: BILAT SCREENING MAMMO W/CAD IMAGES COMPLETED DATE/TIME: 04/19/2020 10:41 am REASON FOR STUDY: Z12.31 ENCNTR SCREEN MAMMOGRAM FOR MALIGNANT NEOPLASM OF BREAST Z12.31 ENCNTR SCR EEN MAMMOGRAM FOR MALIGNANT NEOPLASM OF MELCHOR COMPARISON: 11/09/2018, 09/08/2017, 08/15/2014 EXAM PARAMETERS: Standard craniocaudal and mediolateral oblique views of each breast recorded using digital acquisition. Read with the assistance of CAD. .[facility] - Cuffed and Wanted Net Washer Version 9.2 LIMITATIONS: None. FINDINGS: No suspicious masses, suspicious calcifications or architectural distortion. No areas of c oncern. IMPRESSION: NEGATIVE MAMMOGRAM. BIRADS 1 BREAST DENSITY: a. The breasts are almost entirely fatty. BIRAD: ASSESSMENT: 1 NEGATIVE RECOMMENDATION: ROUTINE SCREENING COMMENT: The patient has been notified of the results by letter per MQSA requirements. Additional no tification policies are in place for contacting patient with suspicious or incomplete findings. Quality ID #225: The [employer] recommends an annual screening mammogram for women aged 40 years or over. This facility utilizes a reminder system to ensure that all patients receive reminder letters, and/or direct phone calls for appointments. This includes reminders for routine scr eening mammograms, diagnostic mammograms, or other Breast Imaging Interventions when appropriate. Th is patient will be placed in the appropriate reminder system. TECHNICAL DOCUMENTATION: FINDING NUMBER: (1) ASSESSMENT: (1) JOB ID: [id number] 2010 [employer]- All Rights Reserved Reading location - IP/workstation name: [email or web address]
== END ==
LOC: WI 10:44
PROVIDERS: ATTEND Physician Assistant
DX: Z12.31 Encounter for screening mammogram for malignant neoplasm of breast (principal)
CPT/HCPCS: 77067